=== PATIENT | female | born 1970 | race Native Hawaiian/Other Pacific Islander ===

== ENCOUNTER → 2020-03-01 | Outpatient (CLI) | payer BC ==
--- NOTE | 2020-03-01 11:51 | Diagnostic Imaging Report ---
PROCEDURE: US Abdomen, limited. TECHNIQUE: Multiple realtime grayscale images were obtained over the abdomen in various projections. INDICATION: Right groin lump IMPRESSION: Ultrasound of the right labial area shows a 5 x 3 x 4 mm subcutaneous hypoechoic lesion. Differential considerations would include follicular abscess or sebaceous cyst. Dictated by: Dictated on workstation # [id number]
== END ==
LOC: RAD 09:42
PROVIDERS: ATTEND Nurse Practitioner Family
DX: N90.89 Other specified noninflammatory disorders of vulva and perineum (principal)
CPT/HCPCS: 76705

== ENCOUNTER → 2020-11-01 | Outpatient (CLI) | payer BC, OTHER ==
--- NOTE | 2020-11-01 14:41 | Diagnostic Imaging Report ---
PROCEDURE: US left lower extremity venous. TECHNIQUE: Multiple Real-time grayscale images were obtained over the left lower extremity in various projections. Additional duplex Doppler and color Doppler images were also obtained. INDICATION: Leg pain. COMPARISON: There are no prior studies available for comparison. FINDINGS: There does appear to be thrombosis of 1 of the 2 posterior tibial veins at the level of the mid/distal calf. The remainder of the deep venous system shows good blood flow and compressibility. There is no other evidence for deep venous thrombosis. IMPRESSION: 1. There is thrombosis of the posterior tibial vein. There is no other evidence for a deep venous thrombosis, however. 2. These results were called to MARCELLO Borges, by our sonologist at the time of this dictation. Dictated by: Dictated on workstation # [id number]
== END ==
LOC: RAD 14:15
PROVIDERS: ATTEND Nurse Practitioner Family
DX: I82.442 Acute embolism and thrombosis of left tibial vein (principal)